=== PATIENT | male | born 1995 | race Two or more races ===

== ENCOUNTER 2025-01-21 10:30 | Day surgery (SDC) | payer MEDICAID, SELFPAY ==
--- NOTE | 2025-01-17 08:44 | EKG_ITS ---
[facility] Test Date: 2025-01-17 Pat Name: KAVYA MUÑOZ Department: Room: - Gender: Male [place]: TAMY : 1995 Requested By: Jason Garland Order Number: [id number] Reading MD: Jason Garland Measurements Intervals [place] Rate: 88 P: 56 IN: 157 QRS: 52 QRSD: 109 T: 39 QT: 341 QTc: 413 Interpretive Statements SINUS RHYTHM No previous ECG available for comparison /[id number]/[email or web address]/[id number]
[2025-01-17 11:04] VITALS: BMI 34.3
[2025-01-17 11:18] LABS: Collection Type, Urine Clean Catch; Squamous Epithelial Cell,Urine 0 /hpf (0-5)
[2025-01-17 11:35] LABS: Basophils # (Auto) 0.1 Thou/mm3 (0.0-0.2); Basophils % (Auto) 1 % (0-2.5); Eosinophils # (Auto) 0.6 Thou/mm3 (0.0-0.5); Eosinophils % (Auto) 6 % (0-10); Hematocrit 49.4 % (41.0-53.0); Hemoglobin 17.1 g/dL (13.5-16.0); Immature Granulocytes Auto 0.05 Thou/mm3 (0.00-0.00); Lymphocytes # (Auto) 3.0 Thou/mm3 (1.0-4.8); Lymphocytes % (Auto) 30 % (10-50); Mean Corpuscular HGB Conc 34.6 g/dl (31.0-37.0); Mean Corpuscular Hemoglobin 30.6 pg (25.0-35.0); Mean Corpuscular Volume 88 fL (80-100); Monocytes # (Auto) 0.9 Thou/mm3 (0.0-0.8); Monocytes % (Auto) 9 % (0-12); Neutrophils # (Auto) 5.4 Thou/mm3 (1.8-7.7); Neutrophils % (Auto) 54 % (37-80); Nucleated Red Blood Cell # 0.00 Thou/mm3 (0.00-0.00); Nucleated Red Blood Cell % 0 /100 WBC (0); Platelet Count 275 Thou/mm3 (140-440); RDW Standard Deviation 40.0 fL (35.1-43.9); Red Blood Count 5.59 Miln/mm3 (4.50-5.90); White Blood Count 10.1 Thou/mm3 (3.8-10.6)
[2025-01-17 11:44] LABS: Bilirubin,Urine Negative (Negative); Blood,Urine Negative (Negative); Clarity,Urine Clear (Clear/Hazy); Color,Urine Yellow (Lt Yel-Yel); Glucose, Urine Negative (Negative); Ketones,Urine Negative (Negative); Leukocyte Esterase,Urine Negative (Negative); Nitrite,Urine Negative (Negative); PH,Urine 6.0 (5.0-7.0); Protein,Urine Negative (Neg - Trace); RBC,Urine 2 /hpf (0-3); Specific Gravity,Urine 1.029 (1.001-1.035); Urobilinogen,Urine Negative mg/dL (0.0-1.0); WBC,Urine < 1 /hpf (0-5)
[2025-01-17 11:49] LABS: Alanine Aminotransferase 41 U/L (10-49); Albumin, Serum 4.5 gm/dL (3.5-5.0); Albumin/Globulin Ratio 2.0 (1.2-2.2); Alkaline Phosphatase 48 U/L (46-116); Anion Gap 8 (7-16); Aspartate Amino Transferase 22 U/L (0-34); BUN/Creatinine Ratio 16 Ratio (12-20); Bilirubin,Total 0.3 mg/dL (0.3-1.2); Blood Urea Nitrogen 16 mg/dL (9-23); Calcium 9.5 mg/dL (8.3-10.6); Calcium (Corrected) 9.5 mg/dL (8.5-10.1); Carbon Dioxide 30.3 mMol/L (20.0-31.0); Chloride 105 mMol/L (98-107); Creatinine (Component) 1.0 mg/dL (0.6-1.3); Estimated Creatinine Clearance 120.3 mL/min (>60); Globulin 2.3 gm/dL (2.3-3.5); Glucose 123 mg/dL (74-106); Osmolality,Calculated 287 (275-295); Potassium 3.9 mMol/L (3.4-5.1); Sodium 143 mMol/L (136-145); Total Protein 6.8 gm/dL (5.7-8.2); eGFR > 60 See Note
[2025-01-17 11:53] LABS: Partial Thromboplastin Time 27.6 Seconds (22.0-36.0)
[2025-01-21] VITALS (9 sets, daily range): BP systolic 109–133; BP diastolic 78–93; PULSE 81–117; RESP 13–20; TEMP 36.1–36.8; O2SAT 95–97; BMI 34.1
[2025-01-21] MEDS: RINGERS LACTATED 1000 ML 1,000 ML 60 ML IV (11:23)
--- NOTE | 2025-01-21 13:24 | PD.SUROPNT ---
Date of Procedure 01/21/25 Pre Op Diagnosis Large lipoma right neck below the fascia Post Op Diagnosis Same. Procedure Excision of deep lipoma right neck measuring 17 cm x 10 cm x 6 cm on 01/21/2025 Findings This patient has a large lipoma in the right neck extending from the left side of the midline to the sternocleidomastoid and then mandibular body all the way up to the lower right neck it was deeper than the fascia. Procedure Description Patient was interviewed in the preop area site and site was marked the risk benefits and alternatives of surgical procedure were discussed with the patient and informed consent was obtained. The patient was then taken to the operating room. General anesthesia was given in a satisfactory manner. The face and neck upper chest regions were prepped and draped in usual manner. The mass was marked on the surface and then the incision was drawn. Local anesthesia 0.5% lidocaine with epinephrine is infiltrated. The curvilinear transverse incision is made over the mass and deepened through the skin subcutaneous tissue and platysma. The fascia was divided and the mass was identified. By gentle dissection the lipoma was dissected from surrounding deep neck structures. The carotid vessels were protected. The thyroid was protected. The submandibular gland was protected. The submandibular branch of facial nerve was protected. The lipoma was gently dissected and was removed within. Hemostasis was achieved. The fascia was approximated by 3-0 Vicryl interrupted sutures and platysma with 3-0 Vicryl interrupted sutures. Skin is approximated by Monocryl subcuticular stitches. Steri-Strips were applied. Patient tolerated the procedure very well. Complications none. Anesthesia GETA Drains None. Pathology / specimen Other (Large lipoma right neck) Estimated Blood Loss 10 Condition Stable Disposition PACU Surgeon Jason Garland MD Surgical Staff Operation Date: 01/21/25 13:15 Case Staff INFECTION CONTROL MANAGER: Jorge Bledsoe RN First Assistant: Pam Garza [facility] with student
--- NOTE | 2025-01-21 14:57 | SUR.PHASEII ---
pt awake and alert, breathing unlabored on room air. v/s stable. pt dressing to neck cdi. pt able to ambulate to wheelchair with steady gait. d/c instructions given with mother Lisa in room, all questions answered. pt d/c via wheelchair with all belongings.
== END 2025-01-21 14:57 | disposition home or self-care (01) ==
PROVIDERS: PCP Physician Assistant; Referring Provider Specialist; Visit Provider Specialist
PROC: (CPT 21552; principal; 2025-01-21 13:00)
DX: D17.0 Benign lipomatous neoplasm of skin and subcutaneous tissue of head, face and neck (principal); Z01.810 Encounter for preprocedural cardiovascular examination
CPT/HCPCS: 21552; 36415; 80053; 81001; 85025; 85730; 93005; A4217; A4649; J1100; J2371; J2405; J2704; J3010; J3490; J7120